=== PATIENT | female | born 1970 | race African-American/Black ===

== ENCOUNTER 2016-11-22 12:46 | Emergency (ER) | payer SELFPAY ==
[~2016-11-22] VITALS: Ht 149.9 cm; Wt 74.0 kg
[~2016-11-22 12:46] MED LIST: ACETTAB3 OR; ANTIVERT PO; CIPROFLOXACN500 MG PO; LISINOP/HCTZ1 TA2 PO; LORTAB 5/3255 MG PO; LORTAB 7.5 OR; NAPROSYN500 MG PO; NO MEDS; PHENERGAN25 MG/TAB PO; PREVACID30 M1 PO; TESSALON PER100 MG OR; ZOFRAN ODT4 MG PO
[2016-11-22 14:11] LABS: URINE BILIRUBIN - DIPSTICK NEGATIVE (NEGATIVE); URINE BLOOD DIPSTICK TRACE-INTACT (NEGATIVE); URINE CLARITY CLEAR; URINE COLOR YELLOW; URINE GLUCOSE - DIPSTICK NEGATIVE (NEGATIVE); URINE KETONE NEGATIVE (NEGATIVE); URINE LEUK ESTERASE SMALL (NEGATIVE); URINE NITRITE - DIPSTICK NEGATIVE (Negative); URINE PH 5.5 (4.5-8.0); URINE PROTEIN - DIPSTICK NEGATIVE (NEG-TRACE); URINE SPECIFIC GRAVITY >=1.030
[2016-11-22 14:19] LABS: URINE SQUAMOUS EPITHELIAL CELL FEW EPI/hpf (0-FEW)
[2016-11-22 14:25] LABS: INFLUENZA A NONE DETECTED (NONE DETECT); INFLUENZA B NONE DETECTED (NONE DETECT)
[2016-11-22] MEDS ORDERED: CIPROFLOXACN500 MG PO (15:01)
[2016-11-22] MEDS ORDERED: NAPROSYN500 MG PO (15:02)
[2016-11-22 15:09] VITALS: BP 146/88
== END 2016-11-22 15:15 | disposition home or self-care (01) | DRG 690 ==
LOC: ED 12:46
PROVIDERS: Emergency Medicine
DX: N39.0 Urinary tract infection, site not specified (principal); I10 Essential (primary) hypertension; F17.210 Nicotine dependence, cigarettes, uncomplicated

== ENCOUNTER 2017-04-04 07:17 | Emergency (ER) | payer OTHER ==
[~2017-04-04] VITALS: Ht 149.9 cm; Wt 75.0 kg
[2017-04-04 07:20] VITALS: BP 140/98
[2017-04-04] MEDS ORDERED: TAM75CAP PO (07:38)
[2017-04-04] MEDS ORDERED: MOTRIN400 MG PO (07:38)
== END 2017-04-04 07:51 | disposition home or self-care (01) | DRG 864 ==
LOC: ED 07:17
DX: R50.9 Fever, unspecified (principal); I10 Essential (primary) hypertension; R05 Cough; J31.0 Chronic rhinitis; R52 Pain, unspecified; F17.210 Nicotine dependence, cigarettes, uncomplicated

== ENCOUNTER 2017-09-24 22:09 | Emergency (ER) | payer OTHER ==
[~2017-09-24] VITALS: Ht 149.9 cm; Wt 77.8 kg
[~2017-09-24 22:09] MED LIST changes: +MOTRIN400 MG PO; +TAM75CAP PO
[2017-09-24 23:41] LABS: INFLUENZA A NONE DETECTED (NONE DETECT); INFLUENZA B NONE DETECTED (NONE DETECT)
[2017-09-24] MEDS ORDERED: CODEINE/GUAIFEN1 SOL PO (23:58)
[2017-09-24] MEDS ORDERED: AMOXICILLIN500 MG PO (23:58)
[2017-09-25 00:15] VITALS: BP 152/88
== END 2017-09-25 00:15 | disposition home or self-care (01) | DRG 153 ==
LOC: ED 22:09
PROVIDERS: Emergency Medicine
DX: J06.9 Acute upper respiratory infection, unspecified (principal); F17.200 Nicotine dependence, unspecified, uncomplicated; J40 Bronchitis, not specified as acute or chronic; R50.9 Fever, unspecified; R05 Cough

== ENCOUNTER 2017-12-25 20:18 | Emergency (ER) | payer SELFPAY ==
[~2017-12-25] VITALS: Ht 149.9 cm; Wt 76.6 kg
[~2017-12-25 20:18] MED LIST changes: +AMOXICILLIN500 MG PO; +CODEINE/GUAIFEN1 SOL PO
[2017-12-25 21:18] LABS: HEMATOCRIT 40.9 % (37.0-47.0); HEMOGLOBIN 13.2 g/dl (12.0-16.0); IMMATURE GRANULOCYTES 0.3 % (0.0-1.0); MEAN CELL VOLUME 72.6 fL CALC (80.0-100.0); MEAN CORPUSCULAR HGB 23.4 pG CALC (26.0-32.0); MEAN CORPUSCULAR HGB CONC 32.3 g/L CALC (32.0-36.0); NEUT# 3.04 thou/uL (2.00-7.15); RED BLOOD COUNT 5.63 mill/uL (4.20-5.60); RED CELL DISTRI WIDTH 16.6 % (11.5-15.5)
[2017-12-25 21:33] LABS: ALBUMIN 3.9 g/dL (3.2-5.0); ALKALINE PHOSPHATASE 117 u/l (38-126); ANION GAP 15 (6-22 (CALC)); BILIRUBIN, TOTAL 0.3 mg/dL (0.0-1.4); BUN 19 mg/dL (7-17); BUN/CREATININE RATIO 20 (12-20 (CALC)); CARBON DIOXIDE 25 mmol/l (22-30); CHLORIDE 107 mmol/l (95-108); GFR 59 ML/MIN (>=60 (CALC)); GFR FOR AFR.AMER. > 60 ML/MIN (>=60 (CALC)); POTASSIUM 3.5 mmol/l (3.5-5.1); SGOT/AST 15 u/l (14-36); SGPT/ALT 27 u/l (9-52); SODIUM 143 mmol/l (137-146)
[2017-12-25 21:34] LABS: URINE BILIRUBIN - DIPSTICK NEGATIVE (NEGATIVE); URINE BLOOD DIPSTICK TRACE-INTACT (NEGATIVE); URINE COLOR YELLOW; URINE GLUCOSE - DIPSTICK NEGATIVE (NEGATIVE); URINE KETONE NEGATIVE (NEGATIVE); URINE LEUK ESTERASE TRACE (NEGATIVE); URINE NITRITE - DIPSTICK NEGATIVE (Negative); URINE PROTEIN - DIPSTICK NEGATIVE (NEG-TRACE)
[2017-12-25 21:45] LABS: URINE CLARITY CLEAR
[2017-12-25] MEDS ORDERED: LISINOPRIL20 MG PO (22:16)
[2017-12-25 22:30] VITALS: BP 113/59
== END 2017-12-25 22:35 | disposition home or self-care (01) | DRG 305 ==
LOC: ED 20:18
PROVIDERS: Family Medicine
DX: I10 Essential (primary) hypertension (principal); F17.210 Nicotine dependence, cigarettes, uncomplicated; Z91.14 Patient's other noncompliance with medication regimen

== ENCOUNTER 2018-03-02 12:36 | Emergency (ER) | payer OTHER ==
[~2018-03-02] VITALS: Ht 149.9 cm; Wt 100.0 kg
[~2018-03-02 12:36] MED LIST changes: +LISINOPRIL20 MG PO
[2018-03-02 13:11] LABS: HEMATOCRIT 43.2 % (37.0-47.0); HEMOGLOBIN 13.8 g/dl (12.0-16.0); IMMATURE GRANULOCYTES 1.5 % (0.0-5.0); MEAN CELL VOLUME 74.6 fL CALC (80.0-100.0); MEAN CORPUSCULAR HGB 23.8 pG CALC (26.0-32.0); MEAN CORPUSCULAR HGB CONC 31.9 g/L CALC (32.0-36.0); NEUT# 3.53 thou/uL (2.00-7.15); RED BLOOD COUNT 5.79 mill/uL (4.20-5.60); RED CELL DISTRI WIDTH 16.4 % (11.5-15.5)
[2018-03-02 13:43] LABS: MYOGLOBIN 30 ng/mL (0 - 62)
[2018-03-02 15:31] LABS: URINE BILIRUBIN - DIPSTICK NEGATIVE (NEGATIVE); URINE BLOOD DIPSTICK NEGATIVE (NEGATIVE); URINE COLOR YELLOW; URINE GLUCOSE - DIPSTICK NEGATIVE (NEGATIVE); URINE KETONE NEGATIVE (NEGATIVE); URINE LEUK ESTERASE NEGATIVE (NEGATIVE); URINE NITRITE - DIPSTICK NEGATIVE (Negative); URINE PH 6.5 (4.5-8.0); URINE PROTEIN - DIPSTICK NEGATIVE (NEG-TRACE); URINE SPECIFIC GRAVITY 1.025
[2018-03-02 15:34] LABS: COCAINE NEGATIVE (NEGATIVE); METHADONE NEGATIVE (NEGATIVE); TETRAHYDROCANNABIONOL NEGATIVE (NEGATIVE); TRICYLIC ANTIDEPRESSANTS NEGATIVE (NEGATIVE)
[2018-03-02 15:35] LABS: BARBITURATES NEGATIVE (NEGATIVE); OXCYCODONE NEGATIVE (NEGATIVE)
[2018-03-02 15:36] LABS: URINE CLARITY CLEAR
[2018-03-02] MEDS ORDERED: ZOFRAN4 MG/TAB PO (16:11)
[2018-03-02] MEDS ORDERED: MECLIZINE25 MG PO (16:11)
[2018-03-02] MEDS ORDERED: REGLAN10 MG PO (16:11)
[2018-03-02 16:19] VITALS: BP 144/59
== END 2018-03-02 16:35 | disposition home or self-care (01) ==
LOC: ED 12:36
DX: R42 Dizziness and giddiness (principal); R11.2 Nausea with vomiting, unspecified; I10 Essential (primary) hypertension; F17.210 Nicotine dependence, cigarettes, uncomplicated

== ENCOUNTER 2018-03-15 17:10 | Emergency (ER) | payer OTHER ==
[~2018-03-15] VITALS: Ht 149.9 cm; Wt 75.0 kg
[~2018-03-15 17:10] MED LIST changes: +MECLIZINE25 MG PO; +REGLAN10 MG PO; +ZOFRAN4 MG/TAB PO
[2018-03-15 17:40] LABS: HEMATOCRIT 43.5 % (37.0-47.0); HEMOGLOBIN 13.9 g/dl (12.0-16.0); IMMATURE GRANULOCYTES 0.3 % (0.0-5.0); MEAN CELL VOLUME 75.3 fL CALC (80.0-100.0); NEUT# 2.97 thou/uL (2.00-7.15); RED BLOOD COUNT 5.78 mill/uL (4.20-5.60)
[2018-03-15 17:50] LABS: ALBUMIN 4.1 g/dL (3.2-5.0); ALKALINE PHOSPHATASE 110 u/l (38-126); ANION GAP 17 (6-22 (CALC)); BILIRUBIN, TOTAL 0.3 mg/dL (0.0-1.4); BUN 14 mg/dL (7-17); BUN/CREATININE RATIO 14 (12-20 (CALC)); CARBON DIOXIDE 26 mmol/l (22-30); CHLORIDE 106 mmol/l (95-108); GFR 59 ML/MIN (>=60 (CALC)); GFR FOR AFR.AMER. > 60 ML/MIN (>=60 (CALC)); LIPASE 174 u/l (23-300); POTASSIUM 3.6 mmol/l (3.5-5.1); SGOT/AST 16 u/l (14-36); SGPT/ALT 33 u/l (9-52); SODIUM 145 mmol/l (137-146); TOTAL PROTEIN 7.5 g/dL (6.3-8.2)
[2018-03-15] MEDS ORDERED: LISINOPRIL20 MG PO (17:52)
[2018-03-15 19:41] LABS: URINE BILIRUBIN - DIPSTICK NEGATIVE (NEGATIVE); URINE BLOOD DIPSTICK NEGATIVE (NEGATIVE); URINE COLOR YELLOW; URINE GLUCOSE - DIPSTICK NEGATIVE (NEGATIVE); URINE KETONE NEGATIVE (NEGATIVE); URINE LEUK ESTERASE NEGATIVE (NEGATIVE); URINE NITRITE - DIPSTICK NEGATIVE (Negative); URINE PROTEIN - DIPSTICK NEGATIVE (NEG-TRACE)
[2018-03-15 19:42] LABS: URINE CLARITY CLEAR
[2018-03-15 21:32] VITALS: BP 166/85
== END 2018-03-15 21:32 | disposition home or self-care (01) ==
LOC: ED 17:10
PROVIDERS: Family Medicine
DX: R10.32 Left lower quadrant pain (principal); R10.31 Right lower quadrant pain; I10 Essential (primary) hypertension; R51 Headache; R11.2 Nausea with vomiting, unspecified; R42 Dizziness and giddiness; F17.210 Nicotine dependence, cigarettes, uncomplicated
CPT/HCPCS: Q9967

== ENCOUNTER 2018-05-15 22:09 | Emergency (ER) | payer OTHER ==
[~2018-05-15] VITALS: Ht 149.9 cm; Wt 80.0 kg
[2018-05-15 23:23] LABS: HEMATOCRIT 43.2 % (37.0-47.0); HEMOGLOBIN 13.8 g/dl (12.0-16.0); IMMATURE GRANULOCYTES 1.1 % (0.0-5.0); MEAN CORPUSCULAR HGB 24.6 pG CALC (26.0-32.0); MEAN CORPUSCULAR HGB CONC 31.9 g/L CALC (32.0-36.0); NEUT# 5.54 thou/uL (2.00-7.15); RED BLOOD COUNT 5.61 mill/uL (4.20-5.60); RED CELL DISTRI WIDTH 15.3 % (11.5-15.5)
[2018-05-15 23:36] LABS: ALBUMIN 4.2 g/dL (3.2-5.0); ALKALINE PHOSPHATASE 105 u/l (38-126); ANION GAP 16 (6-22 (CALC)); BILIRUBIN, TOTAL 0.4 mg/dL (0.0-1.4); BUN 15 mg/dL (7-17); BUN/CREATININE RATIO 15 (12-20 (CALC)); CARBON DIOXIDE 22 mmol/l (22-30); CHLORIDE 107 mmol/l (95-108); CREATININE 1.1 mg/dL (0.5-1.0); GFR 53 ML/MIN (>=60 (CALC)); GFR FOR AFR.AMER. > 60 ML/MIN (>=60 (CALC)); POTASSIUM 3.7 mmol/l (3.5-5.1); SGOT/AST 18 u/l (14-36); SODIUM 141 mmol/l (137-146); TOTAL PROTEIN 7.3 g/dL (6.3-8.2)
[2018-05-16 00:19] LABS: URINE BILIRUBIN - DIPSTICK NEGATIVE (NEGATIVE); URINE BLOOD DIPSTICK NEGATIVE (NEGATIVE); URINE COLOR YELLOW; URINE GLUCOSE - DIPSTICK NEGATIVE (NEGATIVE); URINE KETONE NEGATIVE (NEGATIVE); URINE LEUK ESTERASE NEGATIVE (NEGATIVE); URINE NITRITE - DIPSTICK NEGATIVE (Negative); URINE PH 6.5 (4.5-8.0); URINE PROTEIN - DIPSTICK NEGATIVE (NEG-TRACE)
[2018-05-16 00:22] LABS: URINE CLARITY CLOUDY
[2018-05-16 00:31] LABS: URINE BACTERIA FEW hpf; URINE MUCUS FEW hpf (NONE-FEW); URINE RBC 0-2 RBC/hpf (0-5); URINE SQUAMOUS EPITHELIAL CELL MANY EPI/hpf (0-FEW)
[2018-05-16] MEDS ORDERED: ANTIVERT PO (00:46)
[2018-05-16 01:10] VITALS: BP 157/90
== END 2018-05-16 01:10 | disposition home or self-care (01) ==
LOC: ED 22:09
PROVIDERS: Family Medicine
DX: R42 Dizziness and giddiness (principal); I10 Essential (primary) hypertension; F17.200 Nicotine dependence, unspecified, uncomplicated; R11.2 Nausea with vomiting, unspecified

== ENCOUNTER 2019-05-27 22:58 | Emergency (ER) | payer OTHER ==
[~2019-05-27] VITALS: Ht 149.9 cm; Wt 80.0 kg
[2019-05-28] MEDS ORDERED: VOLTAREN - GENE75 MG PO (00:45)
[2019-05-28] MEDS ORDERED: TRAMADOL HCL50 MG PO (00:45)
[2019-05-28 01:15] VITALS: BP 150/80
== END 2019-05-28 01:15 | disposition home or self-care (01) | DRG 552 ==
LOC: ED 22:58
DX: S16.1XXA Strain of muscle, fascia and tendon at neck level, initial encounter (principal); R07.89 Other chest pain; I10 Essential (primary) hypertension; F17.210 Nicotine dependence, cigarettes, uncomplicated; V89.2XXA Person injured in unspecified motor-vehicle accident, traffic, initial encounter

== ENCOUNTER 2019-07-11 09:47 | Emergency (ER) | payer SELFPAY ==
[~2019-07-11] VITALS: Ht 149.9 cm; Wt 79.5 kg
[~2019-07-11 09:47] MED LIST changes: +TRAMADOL HCL50 MG PO; +VOLTAREN - GENE75 MG PO
[2019-07-11] MEDS ORDERED: AMLODIPINE BESY10 MG PO (10:37)
[2019-07-11 11:42] LABS: HEMATOCRIT 41.9 % (37.0-47.0); HEMOGLOBIN 13.5 g/dl (12.0-16.0); IMMATURE GRANULOCYTES 0.4 % (0.0-5.0); MEAN CELL VOLUME 79.2 fL CALC (80.0-100.0); MEAN CORPUSCULAR HGB 25.5 pG CALC (26.0-32.0); MEAN CORPUSCULAR HGB CONC 32.2 g/L CALC (32.0-36.0); NEUT# 3.48 thou/uL (2.00-7.15); RED BLOOD COUNT 5.29 mill/uL (4.20-5.60); RED CELL DISTRI WIDTH 14.8 % (11.5-15.5)
[2019-07-11 11:51] LABS: ALBUMIN 4.1 g/dL (3.2-5.0); ALKALINE PHOSPHATASE 95 u/l (38-126); ANION GAP 12 (6-22 (CALC)); BILIRUBIN, TOTAL 0.3 mg/dL (0.0-1.4); BUN 14 mg/dL (7-17); BUN/CREATININE RATIO 15 (12-20 (CALC)); CARBON DIOXIDE 24 mmol/l (22-30); CHLORIDE 108 mmol/l (95-108); CREATININE 0.9 mg/dL (0.5-1.0); GFR > 60 ML/MIN (>=60 (CALC)); GFR FOR AFR.AMER. > 60 ML/MIN (>=60 (CALC)); POTASSIUM 3.5 mmol/l (3.5-5.1); SGOT/AST 18 u/l (14-36); SODIUM 140 mmol/l (137-146); TOTAL PROTEIN 7.5 g/dL (6.3-8.2)
[2019-07-11 12:09] LABS: URINE BILIRUBIN - DIPSTICK NEGATIVE (NEGATIVE); URINE COLOR YELLOW; URINE GLUCOSE - DIPSTICK NEGATIVE (NEGATIVE); URINE KETONE NEGATIVE (NEGATIVE); URINE LEUK ESTERASE NEGATIVE (NEGATIVE); URINE NITRITE - DIPSTICK NEGATIVE (Negative); URINE PH 5.5 (4.5-8.0); URINE PROTEIN - DIPSTICK NEGATIVE (NEG-TRACE); URINE SPECIFIC GRAVITY 1.025; URINE UROBILINOGEN - DIPSTICK 0.2 E.U./dL (0.2)
[2019-07-11 12:17] LABS: BARBITURATES NEGATIVE (NEGATIVE); COCAINE NEGATIVE (NEGATIVE); METHADONE NEGATIVE (NEGATIVE); OXCYCODONE NEGATIVE (NEGATIVE); TETRAHYDROCANNABIONOL NEGATIVE (NEGATIVE); TRICYLIC ANTIDEPRESSANTS NEGATIVE (NEGATIVE)
[2019-07-11 12:20] LABS: URINE BLOOD DIPSTICK TRACE (NEGATIVE)
[2019-07-11] MEDS ORDERED: TRAMADOL HYDROC50 MG PO (13:05)
[2019-07-11] MEDS ORDERED: MEDDOSEPAK PO (13:05)
[2019-07-11] MEDS ORDERED: FLEXERIL PO (13:05)
[2019-07-11 13:39] VITALS: BP 141/90
== END 2019-07-11 13:49 | disposition home or self-care (01) | DRG 552 ==
LOC: ED 09:47
DX: M47.22 Other spondylosis with radiculopathy, cervical region (principal); I10 Essential (primary) hypertension; F17.200 Nicotine dependence, unspecified, uncomplicated

== ENCOUNTER 2019-10-19 | Emergency (ER) | payer BC ==
[~2019-10-19] MED LIST changes: +AMLODIPINE BESY10 MG PO; +FLEXERIL PO; +MEDDOSEPAK PO; +TRAMADOL HYDROC50 MG PO
== END 2019-10-19 16:10 | disposition home or self-care (01) | DRG 866 ==
DX: B34.9 Viral infection, unspecified (principal); I10 Essential (primary) hypertension; F17.200 Nicotine dependence, unspecified, uncomplicated

== ENCOUNTER 2020-06-17 19:08 | Emergency (ER) | payer BC ==
[~2020-06-17] VITALS: Ht 144.8 cm; Wt 77.0 kg
[2020-06-17 20:19] LABS: HEMOGLOBIN 14.3 g/dl (12.0-16.0); IMMATURE GRANULOCYTES 0.5 % (0.0-5.0); MEAN CELL VOLUME 77.2 fL CALC (80.0-100.0); MEAN CORPUSCULAR HGB CONC 31.1 g/dL CAL (32.0-36.0); NEUT# 3.07 thou/uL (2.00-7.15); RED BLOOD COUNT 5.96 mill/uL (4.20-5.60); RED CELL DISTRI WIDTH 15.2 % (11.5-15.5)
[2020-06-17 20:21] LABS: URINE BILIRUBIN - DIPSTICK NEGATIVE (NEGATIVE); URINE BLOOD DIPSTICK TRACE-INTACT (NEGATIVE); URINE COLOR YELLOW; URINE GLUCOSE - DIPSTICK NEGATIVE (NEGATIVE); URINE KETONE NEGATIVE (NEGATIVE); URINE LEUK ESTERASE NEGATIVE (NEGATIVE); URINE NITRITE - DIPSTICK NEGATIVE (Negative); URINE PH 5.5 (4.5-8.0); URINE PROTEIN - DIPSTICK NEGATIVE (NEG-TRACE); URINE SPECIFIC GRAVITY >=1.030
[2020-06-17 20:31] LABS: ALBUMIN 4.1 g/dL (3.2-5.0); ALKALINE PHOSPHATASE 116 u/l (38-126); AMYLASE 119 u/l (30-110); ANION GAP 12 (6-22 (CALC)); BILIRUBIN, TOTAL 0.4 mg/dL (0.0-1.4); BUN 11 mg/dL (7-17); BUN/CREATININE RATIO 10 (12-20 (CALC)); CARBON DIOXIDE 25 mmol/l (22-30); CHLORIDE 106 mmol/l (95-108); CREATININE 1.1 mg/dL (0.5-1.0); GFR 53 ML/MIN (>=60 (CALC)); GFR FOR AFR.AMER. > 60 ML/MIN (>=60 (CALC)); LIPASE 129 u/l (23-300); POTASSIUM 3.9 mmol/l (3.5-5.1); SGOT/AST 18 u/l (14-36); SODIUM 138 mmol/l (137-146); TOTAL PROTEIN 7.8 g/dL (6.3-8.2)
[2020-06-17 20:43] LABS: MYOGLOBIN 24 ng/mL (0 - 62)
[2020-06-17] MEDS ORDERED: PROTONIX40 MG PO (21:57)
[2020-06-17 22:00] VITALS: BP 152/68
== END 2020-06-17 22:09 | disposition home or self-care (01) | DRG 392 ==
LOC: ED 19:08
PROVIDERS: Emergency Medicine
DX: R10.11 Right upper quadrant pain (principal); R10.13 Epigastric pain; I10 Essential (primary) hypertension; R73.03 Prediabetes; F17.200 Nicotine dependence, unspecified, uncomplicated
CPT/HCPCS: Q9967; S0164

== ENCOUNTER 2022-02-11 11:15 | Emergency (ER) | payer BC ==
[~2022-02-11] VITALS: Ht 149.9 cm; Wt 73.4 kg
[~2022-02-11 11:15] MED LIST changes: +PROTONIX40 MG PO
[2022-02-11 11:44] VITALS: BP 176/93
[2022-02-11 12:01] VITALS: BP 165/93
[2022-02-11 12:14] LABS: HEMATOCRIT 44.7 % (37.0-47.0); HEMOGLOBIN 14.1 g/dl (12.0-16.0); IMMATURE GRANULOCYTES 0.7 % (0.0-5.0); MEAN CELL VOLUME 79.3 fL CALC (80.0-100.0); MEAN CORPUSCULAR HGB CONC 31.5 g/dL CAL (32.0-36.0); NEUT# 4.34 thou/uL (2.00-7.15); RED BLOOD COUNT 5.64 mill/uL (4.20-5.60); RED CELL DISTRI WIDTH 14.7 % (11.5-15.5)
[2022-02-11 12:20] VITALS: BP 183/107
[2022-02-11 12:22] LABS: ALKALINE PHOSPHATASE 110 u/l (38-126); ANION GAP 11 (6-22 (CALC)); BILIRUBIN, TOTAL 0.4 mg/dL (0.0-1.4); BUN 10 mg/dL (7-17); BUN/CREATININE RATIO 10 (12-20 (CALC)); CARBON DIOXIDE 24 mmol/l (22-30); CHLORIDE 108 mmol/l (95-108); GFR FOR AFR.AMER. > 60 ML/MIN (>=60 (CALC)); GFR OTHER RACES 58 ML/MIN (>=60 (CALC)); POTASSIUM 3.4 mmol/l (3.5-5.1); SGOT/AST 18 u/l (14-36); SODIUM 139 mmol/l (137-146); TOTAL PROTEIN 7.2 g/dL (6.3-8.2)
[2022-02-11 12:31] LABS: MYOGLOBIN 43 ng/mL (0 - 62)
[2022-02-11] MEDS ORDERED: FIORICET PO (13:11)
[2022-02-11] MEDS ORDERED: CYCLOBENZAPRINE10 MG PO (13:12)
[2022-02-11 13:17] VITALS: BP 183/107
== END 2022-02-11 13:25 | disposition home or self-care (01) | DRG 103 ==
LOC: ED 11:15
PROVIDERS: Emergency Medicine
DX: G43.909 Migraine, unspecified, not intractable, without status migrainosus (principal); R07.89 Other chest pain; M54.10 Radiculopathy, site unspecified; I10 Essential (primary) hypertension

== ENCOUNTER 2022-12-22 08:56 | Emergency (ER) | payer BC ==
[~2022-12-22] VITALS: Ht 149.9 cm; Wt 81.0 kg
[~2022-12-22 08:56] MED LIST changes: +CYCLOBENZAPRINE10 MG PO; +FIORICET PO
[2022-12-22] MEDS ORDERED: AMLODIPINE BESY10 MG PO (12:14)
[2022-12-22 12:31] VITALS: BP 129/79
== END 2022-12-22 12:33 | disposition home or self-care (01) | DRG 305 ==
LOC: ED 08:56
DX: I10 Essential (primary) hypertension (principal)

== ENCOUNTER 2024-07-11 09:44 | Emergency (ER) | payer OTHER ==
[2024-07-11] VITALS (12 sets, daily range): BP systolic 126–174; BP diastolic 76–108
[~2024-07-11] VITALS: Ht 149.9 cm; Wt 74.8 kg
[2024-07-11] MEDS ORDERED: FLONASE AL50 MCG/ACT (12:23)
[2024-07-11] MEDS ORDERED: BENZONATATE200 MG PO (12:23)
== END 2024-07-11 12:50 | disposition home or self-care (01) | DRG 866 ==
LOC: ED 09:44
DX: B34.9 Viral infection, unspecified (principal); I10 Essential (primary) hypertension; R73.03 Prediabetes; F17.210 Nicotine dependence, cigarettes, uncomplicated; Z20.822 Contact with and (suspected) exposure to COVID-19